=== PATIENT | male | born 1960 | race African-American/Black ===

== ENCOUNTER 2016-06-16 00:04 | Inpatient (IN) | payer OTHER ==
--- NOTE | ~2016-06-16 | CO ---
Unit #: [id number] #: [id number] Patient: FAIZAN GONGORA [id number] [facility] [address] [place] [address] [id number] I MR#: [id number] NAME: FAIZAN GONGORA ROOM: P210 Age: 55 Sex: M Admission Date: 06/16/2016 : 1960 Attending Physician: Akhil Wallace M.D. Primary Care Physician: Modesta Platt Consultation Date: 06/16/2016 CONSULTATION REPORT SUBJECTIVE Faizan is 55-year-old who reports that he broke his left finger "weeks ago." He has no complaints at this time. PLAN The patient can follow up with primary care if he so wishes upon discharge. No Rx necessary at this time. Dictated by... Lora Rhoades P.A.-C. for Beltran Fraire/loraine TD: 06/17/2016 17:47 JOB #: [id number] CONSULTATION REPORT X Lora Rhoades CONSULTATION REPORT
--- NOTE | ~2016-06-16 | PN ---
Unit #: [id number] #: [id number] Patient: JUJU YANEZ [id number] [facility] [address] [place] [address] [id number] I MR#: [id number] NAME: JUJU YANEZ. ROOM: P210 Age: 55 Sex: M Admission Date: 06/16/2016 : 1960 Attending Physician: Akhil Wallace M.D. Admitting Physician: Akhil Wallace M.D. Primary Care Physician: Modesta MARTINS PROGRESS NOTES DATE OF SERVICE 06/17/2016 DISCUSSION Mr. Yanez is a 55-year-old male who was seen today. Chart was reviewed and case was discussed with the staff. He has been anxious, withdrawn, and has not shown any agitation or irritability and has been cooperative with treatment recommendations and has been taking the medications and tolerating them fairly well with no reported side effects. MENTAL STATUS EXAMINATION Middle-aged male who is casually dressed with fair personal hygiene, appears to be in no acute distress or discomfort. He was awake and alert on interaction with intact orientation. His mood is anxious and depressed with congruent affect. His speech is slow and goal-directed. He denies any suicidal or homicidal ideations and also denies any auditory or visual hallucinations. His insight and judgment remain significantly impaired. TREATMENT PLAN 1. We will continue him on his current medications and treatment protocol. We will monitor his response to the medications and make further adjustments as needed. 2. We will continue to follow up. Dictated by... Beltran Calhoun/dinah TD: 06/18/2016 07:19 JOB #: [id number] Unit #: [id number] #: [id number] Patient: JUJU YANEZ PROGRESS NOTES X Akhil Wallace MD PROGRESS NOTE
--- NOTE | ~2016-06-16 | DS ---
Unit #: [id number] #: [id number] Patient: JUJU YANEZ [id number] [facility] [address] [place] [address] [id number] I MR#: [id number] NAME: JUJU YANEZ ROOM: [facility] Age: 55 Sex: M Admission Date: 06/16/2016 : 1960 Discharge Date: 06/22/2016 Attending Physician: Akhil Wallace M.D. Primary Care Physician: Modesta Platt DISCHARGE SUMMARY IDENTIFYING DATA Mr. Yanez is a 55-year-old male, who is known to us from previous encounter and was self-referred to the hospital. DISCHARGE DIAGNOSES Psychiatric: Bipolar disorder, most recent episode depressed, recurrent, moderate, without psychotic features. Medical: None. Stressors: Moderate psychosocial stressors. HISTORY OF PRESENT ILLNESS Please see initial psychiatric evaluation for details. PAST PSYCHIATRIC HISTORY Please see initial psychiatric evaluation for details. PAST MEDICAL HISTORY Please see initial psychiatric evaluation for details. HOSPITAL COURSE The patient was admitted to the adult psychiatric unit at [facility] and was oriented to the hospital environment. Routine p.r.n. medications were initiated, and he was started back on his home medications. Upon admission, the patient was not taking his medication; as such, was decompensating and medications were adjusted and Risperdal and Celexa were started and later BuSpar was given to help him with the anxiety as well. He was taking medications regularly and was tolerating them fairly well and was able to show a decent and therapeutic response with improvement in depression and anxiety and as such, it was decided that he will be discharged home and will continue treatment on an outpatient basis. DISCHARGE MEDICATIONS Risperdal 1 mg b.i.d. for bipolar, Celexa 20 mg a day for depression, and BuSpar 10 mg b.i.d. for anxiety. DISCHARGE CONDITION Stable. PROGNOSIS Fair. Dictated by... Unit #: [id number] #: [id number] Patient: JUJU YANEZ Beltran Calhoun/loraine TD: 06/22/2016 08:15 JOB #: [id number] DISCHARGE SUMMARY X Akhil Wallace MD SUMMARY
--- NOTE | ~2016-06-16 | PN ---
Unit #: [id number] #: [id number] Patient: JUJU YANEZ [id number] [facility] [address] [place] [address] [id number] I MR#: [id number] NAME: JUJU YANEZ. ROOM: P210 Age: 55 Sex: M Admission Date: 06/16/2016 : 1960 Attending Physician: Akhil Wallace M.D. Admitting Physician: Akhil Wallace M.D. Primary Care Physician: Modesta MARTINS PROGRESS NOTES DATE OF SERVICE: 06/19/2016 SUBJECTIVE Mr. Yanez is a 55-year-old male, who was seen today and chart was reviewed, and case was discussed with the staff. He has been anxious, withdrawn, though has not shown any agitation, irritability, or behavioral problems, and has been cooperative with treatment recommendations and has been taking the medications and tolerating them fairly well with no reported side effects. MENTAL STATUS EXAMINATION Middle-aged male, who was casually dressed with fair personal hygiene, appears to be in no acute distress or discomfort. He was awake and alert on interaction with intact orientation. His mood was anxious with a congruent affect. He denies any suicidal or homicidal ideations. His insight and judgment remain slightly impaired. TREATMENT PLAN 1. We will continue him on his current treatment protocol. We will monitor his response to the medications and make further adjustments as needed. 2. We will continue to follow up. Dictated by... Beltran Calhoun/loraine TD: 06/20/2016 02:34 JOB #: [id number] [facility] PROGRESS NOTES X Akhil Wallace MD PROGRESS NOTE
--- NOTE | ~2016-06-16 | PN ---
Unit #: [id number] #: [id number] Patient: JUJU YANEZ [id number] [facility] [address] [place] [address] [id number] I MR#: [id number] NAME: JUJU YANEZ. ROOM: P210 Age: 55 Sex: M Admission Date: 06/16/2016 : 1960 Attending Physician: Akhil Wallace M.D. Admitting Physician: Akhil Wallace M.D. Primary Care Physician: Modesta MARTINS PROGRESS NOTES DATE OF SERVICE: 06/21/2016 SUBJECTIVE Mr. Yanez is a 55-year-old male, who was seen today and chart was reviewed, and case was discussed with the staff. He has been anxious, withdrawn, though has not shown any agitation. Meanwhile, he has been cooperative with treatment recommendations and has been taking the medications and tolerating them fairly well. MENTAL STATUS EXAMINATION Middle-aged male, who was casually dressed with fair personal hygiene, appears to be in no acute distress or discomfort. He was awake and alert on interaction with intact orientation. His mood was anxious with a congruent affect. He denies any suicidal or homicidal ideations. His insight and judgment remain slightly impaired. TREATMENT PLAN 1. We will continue him on his current medications and treatment protocol. We will monitor his response to the medications and make further adjustments as needed. 2. We will continue to follow up. Dictated by... Beltran Calhoun/loraine TD: 06/22/2016 03:12 JOB #: [id number] [facility] PROGRESS NOTES X Akhil Wallace MD PROGRESS NOTE
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
--- NOTE | ~2016-06-16 | PN ---
Unit #: [id number] #: [id number] Patient: JUJU YANEZ [id number] [facility] [address] [place] [address] [id number] I MR#: [id number] NAME: JUJU YANEZ. ROOM: P210 Age: 55 Sex: M Admission Date: 06/16/2016 : 1960 Attending Physician: Akhil Wallace M.D. Admitting Physician: Akhil Wallace M.D. Primary Care Physician: Modesta MARTINS PROGRESS NOTES DATE OF SERVICE: 06/18/2016 SUBJECTIVE Mr. Yanez is a 55-year-old male, who was seen today and chart was reviewed, and the case was discussed with the staff. He has been anxious, withdrawn, seclusive to himself. Meanwhile, he has been cooperative with treatment recommendations and has been complaining of significant anxiety. MENTAL STATUS EXAMINATION Middle-aged male, who was casually dressed with fair personal hygiene, appears to be in no acute distress or discomfort. He was awake and alert on interaction with intact orientation. His mood was anxious with a congruent affect. He denies any suicidal or homicidal ideations. His insight and judgment remain slightly impaired. TREATMENT PLAN 1. We will continue him on his current treatment protocol. We will monitor his response to the medications and make further adjustments as needed. 2. We will continue to follow up. Dictated by... Beltran Calhoun/eduardol TD: 06/19/2016 07:22 JOB #: [id number] [facility] PROGRESS NOTES X Akhil Wallace MD PROGRESS NOTE
--- NOTE | ~2016-06-16 | HP ---
Unit #: [id number] #: [id number] Patient: FAIZAN GONGORA [id number] [place] [address] [id number] I MR#: [id number] NAME: FAIZAN GONGORA. ROOM: P210 Age: 55 Sex: M Admission Date: 06/16/2016 : 1960 Attending Physician: Akhil Wallace M.D. Admitting Physician: Akhil Wallace M.D. Primary Care Physician: Modesta Platt HISTORY AND PHYSICAL HISTORY OF PRESENT ILLNESS Faizan is a 55 year old admitted to [address] [place] [address] with depression and verbalizing wanting to hurt himself. PAST MEDICAL HISTORY 1. History of illicit substance abuse. He reports that he has been clean and sober for many months. 2. Asthma. 3. Degenerative disc disease. a. Chronic pain. PAST SURGICAL HISTORY Bilateral wrists. ALLERGIES Aspirin (rash) SOCIAL HISTORY He does not smoke. Drinks alcohol rarely. Has a history of illicit drug use but has been clean for many many months. FAMILY HISTORY Medically noncontributory. REVIEW OF SYSTEMS CONSTITUTIONAL: No fever or chills. HEENT: Denies any sore throat, ear pain or runny nose. CARDIOVASCULAR: Denies chest pain, irregular heart rhythm or palpitations. CHEST: Denies shortness of breath or cough. No hemoptysis. GASTROINTESTINAL: Denies nausea, vomiting, diarrhea or chronic constipation. ENDOCRINE: Denies history of increased thirst or urination. No recent significant weight loss or gain. GENITOURINARY: Denies dysuria, frequency, or hematuria. SKIN: Denies any rashes. HEMATOLOGIC: Denies history of increased bleeding or bruising. MUSCULOSKELETAL: Denies any hot, swollen joints. No generalized muscle pain. NEUROLOGIC: Denies problems with vision or speech. No frequent, severe headaches. No numbness, tingling or weakness in any extremities. Denies loss of bladder or bowel control. Unit #: [id number] #: [id number] Patient: FAIZAN GONGORA CURRENT MEDICATIONS 1. Risperdal 1 mg b.i.d. 2. Celexa 20 mg daily 3. Milk of Magnesia p.r.n. 4. Maalox p.r.n. 5. Tylenol p.r.n. PHYSICAL EXAMINATION GENERAL: Alert, well-nourished, in no apparent distress. VITAL SIGNS: Blood pressure 136/86, heart rate 76, respirations 16, temperature 98.6. WEIGHT: 186 pounds. HEIGHT: 5'8". SKIN: Warm and dry without rash or lesion. HEENT: Normocephalic. TMs not viewed. Oral and nasal passages clear. Conjunctivae clear. Pupils equal, round and reactive to light and accommodation. Extraocular movements intact. NECK: Supple without lymphadenopathy or thyromegaly. HEART: Regular rate and rhythm without murmur. LUNGS: Clear. ABDOMEN: Soft, nontender. : Not done. EXTREMITIES: No evidence of cyanosis, clubbing or edema. Moves all extremities without focal deficit. NEUROLOGICAL: Grossly within normal limits. Cranial Nerves: II: Visual martins are intact. III, IV AND : Extraocular movements are intact. Pupils are equal, round and reactive to light. V: Facial sensation is grossly normal. VII: Facial movements and expression are normal. VIII: Auditory acuity grossly intact. IX, X: Uvula is midline. Phonation is normal. XI: Patient shrugs shoulders and turns head normally. XII: Tongue protrudes in the midline. Sensory and Motor Function: Sensory and motor sensation is grossly normal. Motor: moves all extremities well. Coordination: Gait is normal. Deep Tendon Reflexes: Intact. IMPRESSION Psychiatric admission RECOMMENDATIONS PSYCHIATRIC: Per psychiatrist. MEDICAL: I see no contraindications to participating in facility's activities. MEDICAL PROGNOSIS Good. MEDICAL CONDITION Stable. Dictated by... Lora Rhoades P.A.-C. for Vinny Miller M.D. Unit #: [id number] #: [id number] Patient: FAIZAN GONGORA BONY/charly TD: 06/16/2016 23:55 JOB #: [id number] HISTORY AND PHYSICAL X Lora Rhoades HISTORY AND PHYSICAL
--- NOTE | ~2016-06-16 | PN ---
Unit #: [id number] #: [id number] Patient: JUJU GONGORA [id number] [facility] [address] [place] [address] [id number] I MR#: [id number] NAME: JUJU GONGORA ROOM: P210 Age: 55 Sex: M Admission Date: 06/16/2016 : 1960 Attending Physician: Akhil Wallace M.D. Admitting Physician: Akhil Wallace M.D. Primary Care Physician: Modesta MARTINS PROGRESS NOTES DATE 06/20/2016 DISCUSSION Mr. Gloria is a 55-year-old, male who was seen today and chart was reviewed and case was discussed with the staff. He has been anxious, withdrawn and rather seclusive to himself. Meanwhile, he has been cooperative with the treatment recommendations. He has been taking the medication and tolerating them fairly well with no reported side effects. MENTAL STATUS EXAM Middle-aged male who was casually dressed with fair personal hygiene, appears to be in no acute distress or discomfort. He was awake and alert with intact orientation. His mood was anxious with congruent affect. He denies any suicidal or homicidal ideation. His insight and judgement remains slightly impaired. TREATMENT PLAN We will continue him on his current medications and treatment protocol. We will monitor his response and make further adjustments as needed. Dictated by... Beltran Calhoun/charly TD: 06/22/2016 02:16 JOB #: [id number] [facility] PROGRESS NOTES X Akhil Wallace MD PROGRESS NOTE
[~2016-06-16 00:04] MED LIST: ADVAIR 2501 DISK W/D PO; ALBUTEROL17 GM INH; CELEXA PO; CYMBALTA PO; DEPAKOTE PO; DIAZEPAM PO; KLONOPIN PO; PREDNISONE PO; VICODIN 5/500 T1 TAB PO; ZITHROMAX PO
[2016-06-17 12:36] LABS: URINE APPEARANCE CLEAR; URINE BILIRUBIN NEG (NEG); URINE BLOOD NEG (NEG); URINE COLOR YELLOW; URINE GLUCOSE NEG (NEG); URINE KETONE NEG (NEG); URINE LEUKOCYTE ESTERASE NEG (NEG); URINE NITRATE NEG (NEG); URINE PROTEIN NEG (NEG); URINE SPECIFIC GRAVITY 1.018 (1.003-1.035); URINE UROBILINOGEN 0.2 MG/DL (NEG)
[2016-06-17 13:35] LABS: AMPHETAMINE NEG (NEG); BARBITURATES NEG (NEG); BENZODIAZEPINES NEG (NEG); COCAINE POS (NEG); MARIJUANA NEG (NEG); OPIATES NEG (NEG); TRICYCLIC ANTIDEPRESSANTS NEG (NEG); U METHADONE NEG (NEG)
== END 2016-06-22 09:40 | disposition hospice, home (50) | DRG 885 ==
LOC: P2S 00:04
PROVIDERS: Psychiatry & Neurology Psychiatry
DX: F31.32 Bipolar disorder, current episode depressed, moderate (principal); G89.29 Other chronic pain; J45.909 Unspecified asthma, uncomplicated
CPT/HCPCS: 80307; 81003

== ENCOUNTER 2016-07-14 15:08 | Inpatient (IN) | payer OTHER ==
--- NOTE | ~2016-07-14 | PN ---
Unit #: [id number] #: [id number] Patient: JUJU YANEZ [id number] [facility] [address] [place] [address] [id number] I MR#: [id number] NAME: JUJU YANEZ. ROOM: 71 Age: 55 Sex: M Admission Date: 07/14/2016 : 1960 Attending Physician: Akhil Wallace M.D. Admitting Physician: Akhil Wallace M.D. Primary Care Physician: Modesta MARTINS PROGRESS NOTES DATE 07/15/2016 DISCUSSION Mr. Yanez is a 55-year-old male with mood disorder who was seen today and chart was reviewed and case was discussed with the staff. She has been anxious, withdrawn, depressed and has been expressing feelings of hopelessness and helplessness. Meanwhile, he has been taking medications and tolerating them fairly well with no reported side effects. MENTAL STATUS EXAMINATION Middle-aged male who was casually dressed with fair personal hygiene and appears to be in no acute distress or discomfort. He was awake and alert on interaction with intact orientation. His mood was anxious and depressed with congruent affect. His speech is slow and goal-directed. He reports having suicidal ideation but denies any homicidal ideation. His insight and judgement remains slightly impaired. TREATMENT PLAN 1. Will continue on current medications and treatment protocol. Adjust the medications and monitor response. 2. Will continue to follow up. Dictated by... Beltran Calhoun/kathrin TD: 07/16/2016 18:48 JOB #: [id number] Unit #: [id number] #: [id number] Patient: JUJU YANEZ PROGRESS NOTES Page 1 of 1 X Akhil Wallace MD X PROGRESS NOTE
--- NOTE | ~2016-07-14 | DS ---
Unit #: [id number] #: [id number] Patient: [facility]ONGORA [id number] [facility] [address] [place] [address] [id number] I MR#: [id number] NAME: JUJU GONGORA ROOM: 71 Age: 55 Sex: M Admission Date: 07/14/2016 : 1960 Discharge Date: 07/22/2016 Attending Physician: Akhil Wallace M.D. Primary Care Physician: Modesta Platt DISCHARGE SUMMARY IDENTIFYING DATA Mr. Gongora is a 55-year-old male with history of mood disorder, who is known to us from previous encounter and is a resident of [place], [place] and was self-referred to the hospital. DISCHARGE DIAGNOSES Psychiatric: Major depressive disorder, recurrent, moderate, without psychotic features. Medical: None. Stressors: Moderate psychosocial stressors. HISTORY OF PRESENT ILLNESS Please see initial psychiatric evaluation for details. PAST PSYCHIATRIC HISTORY Please see initial psychiatric evaluation for details. PAST MEDICAL HISTORY Please see initial psychiatric evaluation for details. HOSPITAL COURSE The [facility] and was oriented to the hospital environment. Routine p.r.n. medications were initiated, and he was started back on his home medications and medications were adjusted and he was closely monitored. He was initially exhibiting significant depression, anxiety, and seclusive to himself and was reportedly feeling suicidal; however, was polite and pleasant and cooperative with treatment recommendation and was taking the medications regularly and was able to show a fairly decent therapeutic response and as such, it was decided that he will be discharged home and will continue treatment on an outpatient basis. DISCHARGE MEDICATIONS Effexor XR 75 mg for depression. DISCHARGE CONDITION Stable. PROGNOSIS Fair. Dictated by... Akhil Wallace M.D. Unit #: [id number] #: [id number] Patient: JUJU GONGORA IAA/modl TD: 07/22/2016 06:39 JOB #: [id number] DISCHARGE SUMMARY Page 1 of 1 X Akhil Wallace MD X DISCHARGE SUMMARY
--- NOTE | ~2016-07-14 | PN ---
Unit #: [id number] #: [id number] Patient: JJUU YNAEZ [id number] [facility] [address] [place] [address] [id number] I MR#: [id number] NAME: JUJU YANEZ. ROOM: 71 Age: 55 Sex: M Admission Date: 07/14/2016 : 1960 Attending Physician: Akhil Wallace M.D. Admitting Physician: Akhil Wallace M.D. Primary Care Physician: Modesta MARTINS PROGRESS NOTES DATE OF SERVICE: 07/21/2016 SUBJECTIVE Mr. Yanez is a 55-year-old male with mood disorder, who was seen today and chart was reviewed, and case was discussed with the staff. He was seen to be anxious, withdrawn, and seclusive to himself and he reports that he is feeling better than yesterday and has been taking medications and tolerating them fairly well and has been coming to therapy groups and has been participating. MENTAL STATUS EXAMINATION Middle-aged male, who was casually dressed with fair personal hygiene, appears to be in no acute distress or discomfort. He was awake and alert on interaction with intact orientation. His mood was anxious and depressed with a congruent affect. Speech was slow and goal directed. He denies any suicidal or homicidal ideations, and he also denies any auditory or visual hallucinations. His insight and judgment remain slightly impaired. TREATMENT PLAN 1. We will continue him on his current medications and treatment protocol. We will monitor his response to medications and make further adjustments as needed. 2. We will continue to follow up. Dictated by... Beltran Calhoun/eduardol TD: 07/22/2016 02:05 JOB #: [id number] Unit #: [id number] #: [id number] Patient: JUJU YANEZ PROGRESS NOTES Page 1 of 1 X Akhil Wallace MD PROGRESS NOTE
--- NOTE | ~2016-07-14 | PN ---
Unit #: [id number] #: [id number] Patient: JUJU GONGORA [id number] [facility] [address] [place] [address] [id number] MR#: [id number] NAME: JUJU GONGORA. ROOM: P171 Age: 55 Sex: M Admission Date: 07/14/2016 : 1960 Attending Physician: Akhil Wallace M.D. Admitting Physician: Akhil Wallace M.D. Primary Care Physician: Modesta MARTINS PROGRESS NOTES DATE 07/16/2016 DISCUSSION Mr. Gongora is a 55-year-old male who was seen today and chart was reviewed and case was discussed with the staff. He has been anxious, withdrawn, depressed and rather seclusive to himself. Meanwhile, he has been cooperative with treatment recommendations and has been taking medications and tolerating them fairly well with no reported side effects. MENTAL STATUS EXAMINATION Middle-aged male who was casually dressed with fair personal hygiene and appears to be in no acute distress or discomfort. He was awake and alert on interaction with intact orientation. His mood was anxious with congruent affect. He denies any suicidal or homicidal ideations. Insight and judgement remain slightly impaired. TREATMENT PLAN 1. Will continue on his current medications and treatment protocol. Will monitor his response to the medications and make further adjustments as needed. 2. Will continue to follow up. Dictated by... Akhli Wallace M.D. IAA/kathrin TD: 07/18/2016 20:45 JOB #: [id number] Unit #: [id number] #: [id number] Patient: JUJU GONGORA PROGRESS NOTES Page 1 of 1 X Akhil Wallace MD X PROGRESS NOTE
--- NOTE | ~2016-07-14 | PN ---
Unit #: [id number] #: [id number] Patient: JUJU YANEZ [id number] [facility] [address] [place] [address] [id number] MR#: [id number] NAME: JUJU YANEZ. ROOM: 71 Age: 55 Sex: M Admission Date: 07/14/2016 : 1960 Attending Physician: Akhil Wallace M.D. Admitting Physician: Akhil Wallace M.D. Primary Care Physician: Modesta MARTINS PROGRESS NOTES DATE 07/17/2016 DISCUSSION Mr. Yanez is a 55-year-old male who was seen today and chart was reviewed and case was discussed with the staff. He has been anxious, withdrawn and rather seclusive to himself. Meanwhile, he has been complaining of persistent depressive symptoms. He has been taking medications and tolerating them fairly well with no reported side effects. MENTAL STATUS EXAMINATION Middle-aged male who was casually dressed with fair personal hygiene and appears to be in no acute distress or discomfort. He was awake and alert on interaction with intact orientation. His mood was anxious and depressed with congruent affect. His speech is slow and goal-directed. He reports having suicidal ideation but denies any intent or plan and also denies any auditory or visual hallucinations. His insight and judgement remains slightly impaired. TREATMENT PLAN 1. Will continue on his current medications and treatment protocol. Will monitor his response to the medications and make further adjustments as needed. 2. Will continue to follow up. Dictated by... Beltran Calhoun/kathrin TD: 07/20/2016 08:01 JOB #: [id number] Unit #: [id number] #: [id number] Patient: JUJU YANEZ PROGRESS NOTES Page 1 of 1 X Akhil Wallace MD PROGRESS NOTE
--- NOTE | ~2016-07-14 | PA ---
Unit #: [id number] #: [id number] Patient: JUJU GONGORA [id number] [facility] [address] [place] [address] [id number] I MR#: [id number] NAME: JUJU GONGORA. ROOM: P171 Age: 55 Sex: M Admission Date: 07/14/2016 : 1960 Date of Assessment: 07/14/2016 Attending Physician: Akhil Wallace M.D. Admitting Physician: Akhil Wallace M.D. Primary Care Physician: Modesta Platt PSYCHIATRIC ASSESSMENT DATE OF SERVICE 07/14/2016. IDENTIFYING DATA Mr. Gongora is a 55-year-old male, who is a resident of [place], [place] and was self-referred to the hospital on a voluntary basis. CHIEF COMPLAINT "I am worse than I have been since a long time." HISTORY OF PRESENT ILLNESS Mr. Gongora is a 55-year-old male with a history of mood disorder who was self-referred to the hospital reporting that he has been decompensating, "last night, it really got bad and I wanted to take my own life it seems like the medicine that I am on feels like it is doing the opposite of what it is supposed to be doing, I'm feeling like more suicidal than I've ever been, just everyday life, I'm kind of like homeless in a way and I have not seen my kids and seems like this whole world is against me." He does report increasing depression, anger, agitation, irritability, feelings of hopelessness and helplessness, and suicidal ideations with intent and plan. SUBSTANCE ABUSE HISTORY The patient reports history of alcohol and cocaine abuse in the past, but denies any current substance abuse issues. PAST PSYCHIATRIC HISTORY The patient has had a history of multiple inpatient psychiatric hospitalizations including [facility] in addition to being at the [facility], [facility] and [place] and currently he is not active in any treatment program, is not seeing a psychiatrist, and is not taking any psychotropic medications. PAST MEDICAL HISTORY No acute or chronic medical illnesses. ALLERGIES No known medication allergies. PERSONAL AND SOCIAL HISTORY A 55-year-old male, who reports that he is single, unemployed, and currently homeless and has poor social support system and Unit #: [id number] #: [id number] Patient: JUJU GONGORA has been staying with different friends and family members. MENTAL STATUS EXAMINATION Middle-aged male, who was casually dressed with fair personal hygiene, appears to be in no acute distress or discomfort. He was awake and alert on interaction with intact orientation to time, place, and person. His mood was anxious and depressed with a congruent affect. His speech was slow and goal directed. He reports having suicidal ideation, but denies any homicidal ideations, and also denies any auditory or visual hallucinations. His insight and judgment remain significantly impaired. DIAGNOSTIC IMPRESSION Psychiatric: Major depressive disorder, recurrent, moderate, without psychotic features. Medical: None. Stressors: Moderate psychosocial stressors. TREATMENT PLAN 1. The patient has presented with a history of mood disorder and substance abuse and has been decompensating and will need inpatient hospitalization for detoxification, safety, and stabilization. We will start him back on his home medications and we will adjust the medications and monitor response. 2. Poor supportive therapy was provided to the patient. 3. Safe, structured, and nourishing environment will be provided. ESTIMATED LENGTH OF STAY 4 to 5 days. ABILITY TO HELP SELF Limited. WILLINGNESS TO HELP SELF The patient appears to be willing to help self. STRENGTHS 1. Communicative. 2. Cooperative. PROBLEMS 1. Chronic dysphoric symptoms. 2. Chronic chemical dependency. 3. Poor social support system. DISCHARGE CRITERIA This will be contingent upon the patient's ability to go through detox without having any significant withdrawal symptoms as well as the ability to stay safe to himself, particularly after discharge from the hospital. Dictated by... Akhil Wallace M.D. GUSTAVO/loraine TD: 07/15/2016 07:59 Unit #: [id number] #: [id number] Patient: JUJU GONGORA JOB #: [id number] PSYCHIATRIC ASSESSMENT Page 1 of 1 X Akhil Wallace MD X PSYCHIATRIC ASSESSMENT
--- NOTE | ~2016-07-14 | PN ---
Unit #: [id number] #: [id number] Patient: JUJU YANEZ [id number] [facility] [address] [place] [address] [id number] MR#: [id number] NAME: JUJU YANEZ. ROOM: P171 Age: 55 Sex: M Admission Date: 07/14/2016 : 1960 Attending Physician: Akhil Wallace M.D. Admitting Physician: Akhil Wallace M.D. Primary Care Physician: Modesta MARTINS PROGRESS NOTES DATE OF SERVICE: 07/20/2016 SUBJECTIVE Mr. Yanez is a 55-year-old male who was seen today and chart was reviewed. Case was discussed with the staff. He has been anxious, withdrawn, and seclusive to himself. Meanwhile, he has been cooperative with treatment recommendations and has been taking the medications and tolerating them fairly well with no reported side effects. MENTAL STATUS EXAMINATION Middle-aged male, who was casually dressed with fair personal hygiene, appears to be in no acute distress or discomfort. He was awake and alert on interaction with intact orientation. His mood was anxious and depressed with a congruent affect. Speech was slow and restricted in content. His thought processes were disorganized with some looseness of associations. His insight remains slightly impaired. TREATMENT PLAN 1. We will continue his current medications and treatment protocol. We will monitor his response to medications and make further adjustments as needed. 2. We will continue to follow up. Dictated by... Beltran Calhoun/loraine TD: 07/21/2016 05:05 JOB #: [id number] [facility] PROGRESS NOTES Page 1 of 1 X Akhil Wallace MD X PROGRESS NOTE
--- NOTE | ~2016-07-14 | CO ---
Unit #: [id number] #: [id number] Patient: FAZIAN GONGORA [id number] [place] [address] [id number] I MR#: [id number] NAME: FAIZAN GONGORA. ROOM: [facility] Age: 55 Sex: M Admission Date: 07/14/2016 : 1960 Attending Physician: Akhil Wallace M.D. Primary Care Physician: Modesta Platt Consultation Date: 07/17/2016 CONSULTATION REPORT SUBJECTIVE Faizan is a 55-year-old with history of illicit substance abuse. At time of admission, he gave no prior history of high blood pressure. We have been asked to see him for elevated pressures. The patient has no complaints of chest pain, shortness of breath, or irregular heartbeats. OBJECTIVE GENERAL: Alert, well nourished, in no apparent distress. VITAL SIGNS: Blood pressure 145/105, 142/96, 148/88, 150/110; heart rate 85, 78, 74; respirations 16, temperature 98.6. CARDIOVASCULAR: Rate and rhythm is regular. CHEST: Lungs clear. EXTREMITIES: No edema. ASSESSMENT High blood pressure, not controlled. PLAN Metoprolol 25 mg one p.o. b.i.d. The patient knows to follow up with primary care physician. Dictated by... Lora Rhoades P.A.-C. for Beltran Fraire/loraine TD: 07/23/2016 02:00 JOB #: [id number] CONSULTATION REPORT Page 1 of 1 X Lora Rhoades CONSULTATION REPORT
--- NOTE | ~2016-07-14 | HP ---
Unit #: [id number] #: [id number] Patient: FAIZAN GONGORA [id number] [facility] [address] [place] [address] [id number] MR#: [id number] NAME: FAIZAN GONGORA. ROOM: P171 Age: 55 Sex: M Admission Date: 07/14/2016 : 1960 Attending Physician: Akhil Wallace M.D. Admitting Physician: Akhil Wallace M.D. Primary Care Physician: Modesta Platt HISTORY AND PHYSICAL HISTORY OF PRESENT ILLNESS Faizan is a 55 year old admitted to [facility] with depression and verbalizing wanting to hurt himself. The patient was seen and H & P dated 06/16/2016 was reviewed. This is current. No changes. Please see H & P dated 06/16/2016. Dictated by... Lora Rhoades P.A.-C. for Beltran Fraire/charly TD: 07/14/2016 20:55 JOB #: [id number] HISTORY AND PHYSICAL Page 1 of 1 X Lora Rhoades HISTORY AND PHYSICAL
--- NOTE | ~2016-07-14 | PN ---
Unit #: [id number] #: [id number] Patient: JUJU YANEZ [id number] [facility] [address] [place] [address] [id number] I MR#: [id number] NAME: JUJU YANEZ. ROOM: P171 Age: 55 Sex: M Admission Date: 07/14/2016 : 1960 Attending Physician: Akhil Wallace M.D. Admitting Physician: Akhil Wallace M.D. Primary Care Physician: Virginia Elias PROGRESS NOTES DATE 07/18/2016 DISCUSSION Mr. Yanez was seen today in coverage for Dr. Wallace. He reports that he continues to be anxious, withdrawn, with some irritability and is compliant with medications. He complains of some mild carpal tunnel type pain in his right thumb but is otherwise negative on review of systems. He is alert and fully oriented with no psychosis, but ongoing suicidal ideation. He has no homicidal ideation. ASSESSMENT Bipolar disorder. PLAN Continue current treatment plan. Dictated by... Todd Justice M.D. LIANE/ralf TD: 07/21/2016 08:36 [facility]OB #: [id number] [facility] PROGR[facility] NOT[facility] Page 1 of 1 X Todd Justice MD X PROGRESS NOTE
[2016-07-18 11:32] LABS: URINE APPEARANCE CLEAR; URINE BILIRUBIN NEG (NEG); URINE BLOOD NEG (NEG); URINE COLOR YELLOW; URINE GLUCOSE NEG (NEG); URINE KETONE NEG (NEG); URINE LEUKOCYTE ESTERASE NEG (NEG); URINE NITRATE NEG (NEG); URINE PH 5.5 (5-8); URINE PROTEIN NEG (NEG); URINE UROBILINOGEN 0.2 MG/DL (NEG)
[2016-07-18 12:53] LABS: AMPHETAMINE NEG (NEG); BARBITURATES NEG (NEG); BENZODIAZEPINES NEG (NEG); COCAINE NEG (NEG); MARIJUANA NEG (NEG); OPIATES NEG (NEG); TRICYCLIC ANTIDEPRESSANTS NEG (NEG); U METHADONE NEG (NEG)
== END 2016-07-22 13:07 | DRG 885 ==
LOC: POF 15:08 → P1E 15:29
PROVIDERS: Psychiatry & Neurology Psychiatry
DX: F33.1 Major depressive disorder, recurrent, moderate (principal); R45.851 Suicidal ideations; I10 Essential (primary) hypertension; F41.9 Anxiety disorder, unspecified; Z56.0 Unemployment, unspecified; Z59.0 Homelessness
CPT/HCPCS: 80307; 81003

== ENCOUNTER 2016-11-04 12:00 | Inpatient (IN) | payer OTHER ==
[~2016-11-04] VITALS: Ht 172.7 cm; Wt 93.0 kg
--- NOTE | ~2016-11-04 | HP ---
Unit #: [id number] #: [id number] Patient: FAIZAN GONGORA [id number] [place] [address] [id number] I MR#: [id number] NAME: FAIZAN GONGORA ROOM: P130 Age: 56 Sex: M Admission Date: 11/04/2016 : 1960 Attending Physician: Akhil Wallace M.D. Admitting Physician: Akhil Wallace M.D. Primary Care Physician: Modesta Platt HISTORY AND PHYSICAL NOTE Faizan is a 56-year-old admitted to [address] [place] [address]. He was admitted and discharged within the 24 hours. He was not seen for an H & P. Dictated by... Elsa Houston/charly TD: 11/05/2016 00:23 JOB #: [id number] HISTORY AND PHYSICAL Page 1 of X Lora Rhoades HISTORY AND PHYSICAL
== END 2016-11-04 20:47 | disposition left against medical advice (07) | DRG 881 ==
LOC: P1S 14:10
DX: F32.9 Major depressive disorder, single episode, unspecified (principal); F15.90 Other stimulant use, unspecified, uncomplicated